=== PATIENT | female | born 1935 | race Caucasian/White ===

== ENCOUNTER → 2016-04-29 | Outpatient (CLI) | payer MEDICARE, OTHER | LOC: OD 10:20 | PROVIDERS: ATTEND Pain Medicine Interventional Pain Medicine | DX: M25.562 Pain in left knee (principal) ==

== ENCOUNTER 2016-07-14 12:32 | Inpatient (IN) | payer MEDICARE, OTHER ==
[2016-07-14] MEDS ORDERED: NORMAL SALINE 1000 ML 1,000 ML IV PRN (13:07)
--- NOTE | 2016-07-14 13:23 | PDOC H&P ---
History of Present Illness Admission Date/PCP: 07/14/16 12:32 DELFINO LYNN Patient complains of: Nausea vomiting History of Present Illness: KAT WHELAN is a 81 year old female This 81-year-old female with a history of the hypertension and a history of the chronic osteoarthritis and osteoporosis came to the my office with a complaining from nausea and vomiting since last 2 days and also complained for loose stool patient's denied any blood in the stool denied any black stool. Patient was complaining some lower abdominal discomfort. Patient also complains some more frequent urinations and patient also tried to drink more water since last couple of days. Patient also seen by Dr. Coreas last year and then a colonoscopy was done and according to the patient was all stable patients in my officeWas dehydrated and at this point decided to admit in the hospital for further IV fluid and further evaluations Patients denied any chest pain denied any shortness of the breath Past Medical History Cardiac Medical History: Reports: Hypertension - CONTROLLED Denies: Coronary Artery Disease, Myocardial Infarction Pulmonary Medical History: Reports: Pneumonia Denies: Asthma, Bronchitis, Chronic Obstructive Pulmonary Disease (COPD) Neurological Medical History: Denies: Seizures GI Medical History: Reports: Gastroesophageal Reflux Disease, Hiatal Hernia Denies: Hepatitis Musculoskeltal Medical History: Reports: Arthritis Hematology: Denies: Anemia, Sickle Cell Disease Past Surgical History Past Surgical History: Reports: Hysterectomy, Orthopedic Surgery Denies: Amputation, Mastectomy, Pacemaker Social History Information Source: Patient Smoking Status: Never Smoker Frequency of Alcohol Use: None Hx Recreational Drug Use: No Hx Prescription Drug Abuse: No Family History Family History: None, Reviewed & Not Pertinent Parental Family History Reviewed: Yes Children Family History Reviewed: Yes Sibling(s) Family History Reviewed.: Yes Medication/Allergy Home Medications: Calcium Carbonate/Vitamin D3 [Calcium + Vitamin D Tablet] 1 each PO DAILY Hydrochlorothiazide 25 mg PO DAILY 01/15/12 Omeprazole 20 mg PO DAILY 01/15/12 Tramadol HCl 50 mg PO BID PRN 01/15/12 Ranitidine HCl 150 mg PO BID 08/10/12 Diclofenac Sodium [Voltaren] 100 gm TP DAILY PRN 08/11/12 Fexofenadine HCl [Romelia] 180 mg PO DAILY 08/11/12 Fluticasone Propionate [Flonase Nasal [place] 50 Mcg/[place] 16 gm] 2 spray NASL Q12 PRN 08/11/12 Allergies/Adverse Reactions: Penicillins Allergy (Verified 12/07/13 12:37) Review of Systems Constitutional: PRESENT: anorexia, weakness. ABSENT: chills, fever(s), headache (s), weight gain, weight loss Eyes: ABSENT: visual disturbances Ears: ABSENT: hearing changes Cardiovascular: ABSENT: chest pain, dyspnea on exertion, edema, orthropnea, palpitations Respiratory: ABSENT: cough, hemoptysis Gastrointestinal: PRESENT: abdominal pain, diarrhea, nausea, vomiting. ABSENT: constipation, hematemesis, hematochezia Genitourinary: ABSENT: dysuria, hematuria Musculoskeletal: ABSENT: joint swelling Integumentary: ABSENT: rash, wounds Neurological: ABSENT: abnormal gait, abnormal speech, confusion, dizziness, focal weakness, syncope Psychiatric: ABSENT: anxiety, depression, homidical ideation, suicidal ideation Endocrine: ABSENT: cold intolerance, heat intolerance, menstrual abnormalities, polydipsia, polyuria Hematologic/Lymphatic: ABSENT: easy bleeding, easy bruising, lymphadenopathy Assessment & Plan - Diagnosis (1) Nausea & vomiting Qualifiers: Vomiting Intractability: unspecified Is this a current diagnosis for this admission?: YesPlan: Given patient Zofran 4 mg IV and IV fluid and a full liquid diet and get the CT abdomen and pelvis for further evaluations (2) Dehydration Plan: From the above conditions start the patient on IV fluid (3) Arthritis Plan: Patient's currently taking Mobic will put the patient on Protonix (4) Abdominal pain Qualifiers: Abdominal location: unspecified location Qualified Code(s): R10.9 - Unspecified abdominal pain Is this a current diagnosis for this admission?: YesPlan: We will check the blood work possible underlying urinary tract infections will check the urine culture and get the CT abdomen and pelvis - Time Time Spent: 30 to 50 Minutes Medications reviewed and adjusted accordingly: Yes Anticipated discharge: Home Within: Other - Inpatient Certification Medical Necessity: Need For IV Fluids, Need for IV Antibiotics 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
[2016-07-14] MEDS ORDERED: CIPROFLOXACIN 400 MG/D5W RTU 400 MG/200 ML RTUPB IV ONE (14:00)
[2016-07-14 14:14] LABS: HEMATOCRIT 34.1 % (36.0-47.0); HGB HCT DIFFERENCE -1.1; MEAN CORPUSCULAR HEMOGLOBIN 24.8 pg (27.0-33.4); MEAN CORPUSCULAR HGB CONC 32.2 g/dL (32.0-36.0); MEAN CORPUSCULAR VOLUME 77 fl (80-97); RED BLOOD COUNT 4.44 10^6/uL (3.72-5.28); RED CELL DISTRIBUTION WIDTH 16.7 % (11.5-14.0); WHITE BLOOD COUNT 28.4 10^3/uL (4.0-10.5)
[2016-07-14] MEDS: NORMAL SALINE 1000 ML 1,000 ML IV PRN (14:37)
[2016-07-14 14:39] LABS: ALANINE AMINOTRANSFERASE 27 U/L (9-52); ALBUMIN 3.7 g/dL (3.5-5.0); ALKALINE PHOSPHATASE 104 U/L (38-126); ANION GAP 14 (5-19); ASPARTATE AMINO TRANSFERASE 19 U/L (14-36); BILIRUBIN,DIRECT 0.4 mg/dL (0.0-0.4); BILIRUBIN,TOTAL 0.7 mg/dL (0.2-1.3); BLOOD UREA NITROGEN 20 mg/dL (7-20); CALCIUM 10.4 mg/dL (8.4-10.2); CARBON DIOXIDE 30 mmol/L (22-30); CHLORIDE 96 mmol/L (98-107); CREATININE RESULT 0.72 mg/dL (0.52-1.25); GLUCOSE 109 mg/dL (75-110); LIPASE 23.3 U/L (23-300); POTASSIUM 4.2 mmol/L (3.6-5.0); SODIUM 139.5 mmol/L (137-145); TOTAL PROTEIN 7.2 g/dL (6.3-8.2)
[2016-07-14 14:45] LABS: BASOPHILS % (MANUAL) 0 % (0-2); EOSINOPHILS % (MANUAL) 0 % (0-6); LYMPHOCYTES % (MANUAL) 9 % (13-45); TOTAL CELLS COUNTED 100
[2016-07-14 14:46] LABS: BAND NEUTROPHILS % (MANUAL) 13 % (3-5)
[2016-07-14 14:50] LABS: POLYCHROMASIA SLIGHT; TOXIC GRANULATION SLIGHT; TOXIC VACUOLATION PRESENT
[2016-07-14] MEDS: ONDANSETRON HCL INJ/PF 4 MG/2 ML SDV IV PRN (17:24)
[2016-07-14] MEDS ORDERED: PANTOPRAZOLE SODIUM 40 MG VIAL IV ONE (18:30)
[2016-07-14 19:27] LABS: AMORPHOUS SEDIMENT,URINE TRACE /HPF; APPEARANCE,URINE SLIGHTLY-CLOUDY; BILIRUBIN,URINE NEGATIVE (NEGATIVE); GLUCOSE, URINE NEGATIVE (NEGATIVE); KETONES,URINE NEGATIVE (NEGATIVE); LEUKOCYTE ESTERASE,URINE LARGE (NEGATIVE); NITRITE,URINE POSITIVE (NEGATIVE); PROTEIN,URINE NEGATIVE (NEGATIVE); URINE SPECIFIC GRAVITY 1.012; UROBILINOGEN,URINE NEGATIVE mg/dL (<2.0)
[2016-07-14] MEDS: METRONIDAZOLE 500 MG/NS RTU 100 ML IV SCH (21:59)
[2016-07-15] MEDS: NORMAL SALINE 1000 ML 1,000 ML IV PRN (04:14)
[2016-07-15] MEDS: CIPROFLOXACIN 400 MG/D5W RTU 400 MG/200 ML RTUPB IV SCH ×2 (05:04→17:59)
[2016-07-15] MEDS: METRONIDAZOLE 500 MG/NS RTU 100 ML IV SCH (05:04)
[2016-07-15] MEDS: PANTOPRAZOLE SODIUM 40 MG VIAL IV SCH ×2 (05:04→17:59)
[2016-07-15 07:19] LABS: ANION GAP 10 (5-19); BLOOD UREA NITROGEN 23 mg/dL (7-20); CALCIUM 8.6 mg/dL (8.4-10.2); CARBON DIOXIDE 26 mmol/L (22-30); CHLORIDE 101 mmol/L (98-107); GLUCOSE 121 mg/dL (75-110); POTASSIUM 3.8 mmol/L (3.6-5.0); SODIUM 137.3 mmol/L (137-145)
[2016-07-15 07:22] LABS: ABSOLUTE EOSINOPHILS # (AUTO) 0.1 10^3/uL (0.0-0.6); ABSOLUTE LYMPHOCYTES (AUTO) 1.9 10^3/uL (0.5-4.7); ABSOLUTE MONOCYTES (AUTO) 0.3 10^3/uL (0.1-1.4); ABSOLUTE NEUT (AUTO) 10.8 10^3/uL (1.7-8.2); BASOPHILS % (AUTO) 0.2 % (0-2); EOSINOPHILS % (AUTO) 0.7 % (0-6); HEMATOCRIT 27.8 % (36.0-47.0); HGB HCT DIFFERENCE -0.8; LYMPHOCYTES % (AUTO) 14.3 % (13-45); MEAN CORPUSCULAR HEMOGLOBIN 25.2 pg (27.0-33.4); MEAN CORPUSCULAR HGB CONC 32.5 g/dL (32.0-36.0); MEAN CORPUSCULAR VOLUME 78 fl (80-97); MONOCYTES % (AUTO) 2.6 % (3-13); RED BLOOD COUNT 3.57 10^6/uL (3.72-5.28); RED CELL DISTRIBUTION WIDTH 16.8 % (11.5-14.0); SEGMENTED NEUTROPHILS % (AUTO) 82.2 % (42-78); WHITE BLOOD COUNT 13.1 10^3/uL (4.0-10.5)
--- NOTE | 2016-07-15 08:07 | PDOC PROGRESS REPORT ---
Subjective Progress Note for:: 07/15/16 Subjective:: Patient's currently doing fair denied any nausea vomiting this complained of for heartburn Patient CT abdomen and pelvis did not show any acute finding and patient's chest x-ray was also stable pt white count was 28,000 yesterday and is coming down to 13 Physical Exam Vital Signs: Temp Pulse Resp BP Pulse Ox 97.6 F 83 16 100/53 L 97 07/14/16 23:31 07/14/16 23:31 07/14/16 23:31 07/14/16 23:31 07/14/16 23:31 Intake & Output 07/14/16 07/15/16 07/16/16 06:59 06:59 06:59 Intake Total 2530 Output Total 300 Balance 2230 Weight 45 kg General appearance: PRESENT: no acute distress, well-developed, well-nourished Head exam: PRESENT: atraumatic, normocephalic Eye exam: PRESENT: conjunctiva pink, EOMI, PERRLA. ABSENT: scleral icterus Ear exam: PRESENT: normal external ear exam Mouth exam: PRESENT: moist, tongue midline Neck exam: PRESENT: full ROM. ABSENT: carotid bruit, JVD, lymphadenopathy, thyromegaly Respiratory exam: PRESENT: clear to auscultation candelario Cardiovascular exam: PRESENT: RRR. ABSENT: diastolic murmur, rubs, systolic murmur Pulses: PRESENT: normal dorsalis pedis pul, +2 pedal pulses bilateral Vascular exam: PRESENT: normal capillary refill GI/Abdominal exam: PRESENT: normal bowel sounds, soft. ABSENT: distended, guarding, mass, organolmegaly, rebound, tenderness Rectal exam: PRESENT: deferred Neurological exam: PRESENT: alert, awake, oriented to person, oriented to place , oriented to time, oriented to situation, CN II-XII grossly intact. ABSENT: motor sensory deficit Psychiatric exam: PRESENT: appropriate affect, normal mood. ABSENT: homicidal ideation, suicidal ideation Skin exam: PRESENT: dry, intact, warm. ABSENT: cyanosis, rash Results Laboratory Results: 07/15/16 06:54 07/15/16 06:54 07/14/16 07/14/16 07/14/16 13:47 13:47 18:10 WBC 28.4 H RBC 4.44 Hgb 11.0 L Hct 34.1 L MCV 77 L MCH 24.8 L MCHC 32.2 RDW 16.7 H Plt Count 374 Seg Neutrophils % Not Reportable Lymphocytes % Not Reportable Monocytes % Not Reportable Eosinophils % Not Reportable Basophils % Not Reportable Absolute Neutrophils Not Reportable Absolute Lymphocytes Not Reportable Absolute Monocytes Not Reportable Absolute Eosinophils Not Reportable Absolute Basophils Not Reportable Sodium 139.5 Potassium 4.2 Chloride 96 L Carbon Dioxide 30 Anion Gap 14 BUN 20 Creatinine 0.72 Est GFR ( Amer) > 60 Est GFR (Non-Af Amer) > 60 Glucose 109 Calcium 10.4 H Total Bilirubin 0.7 AST 19 ALT 27 Alkaline Phosphatase 104 Total Protein 7.2 Albumin 3.7 Lipase 23.3 Urine Color Urine Appearance Urine pH Ur Specific [place] Urine Protein Urine Glucose (UA) Urine Ketones Urine Blood Urine Nitrite Ur Leukocyte Esterase Urine WBC (Auto) Urine RBC (Auto) Stool Occult Blood NEGATIVE 07/14/16 07/15/16 07/15/16 18:10 06:54 06:54 WBC 13.1 H RBC 3.57 L Hgb 9.0 L Hct 27.8 L MCV 78 L MCH 25.2 L MCHC 32.5 RDW 16.8 H Plt Count 321 Seg Neutrophils % 82.2 H Lymphocytes % 14.3 Monocytes % 2.6 L Eosinophils % 0.7 Basophils % 0.2 Absolute Neutrophils 10.8 H Absolute Lymphocytes 1.9 Absolute Monocytes 0.3 Absolute Eosinophils 0.1 Absolute Basophils 0.0 Sodium 137.3 Potassium 3.8 Chloride 101 Carbon Dioxide 26 Anion Gap 10 BUN 23 H Creatinine 0.70 Est GFR ( Amer) > 60 Est GFR (Non-Af Amer) > 60 Glucose 121 H Calcium 8.6 Total Bilirubin AST ALT Alkaline Phosphatase Total Protein Albumin Lipase Urine Color YELLOW Urine Appearance SLIGHTLY-CLOUDY Urine pH 7.0 Ur Specific [place] 1.012 Urine Protein NEGATIVE Urine Glucose (UA) NEGATIVE Urine Ketones NEGATIVE Urine Blood NEGATIVE Urine Nitrite POSITIVE H Ur Leukocyte Esterase LARGE H Urine WBC (Auto) >182 Urine RBC (Auto) 20 Stool Occult Blood Impressions: Abdomen/Pelvis CT 07/14/16 00:00 IMPRESSION: Large hiatal hernia. No acute findings in the abdomen or pelvis. Chest X-Ray 07/14/16 00:00 IMPRESSION: Mild subsegmental atelectasis in both lung bases. No dense consolidation or significant effusion. Assessment & Plan - Diagnosis (1) Nausea & vomiting Qualifiers: Vomiting Intractability: unspecified Is this a current diagnosis for this admission?: YesPlan: Is getting better the CT abdomen and pelvis so the large hiatal hernia will consult the GI for further evaluations and continues the Protonix (2) Dehydration Plan: From an above patient's currently better continues IV fluid (3) Arthritis Plan: Patient's currently taking Mobic will put the patient on Protonix (4) Abdominal pain Qualifiers: Abdominal location: unspecified location Qualified Code(s): R10.9 - Unspecified abdominal pain Is this a current diagnosis for this admission?: YesPlan: Most likely from the gastritis stopped and possible urinary tract infections (5) Leukocytosis Qualifiers: Leukocytosis type: unspecified Qualified Code(s): D72.829 - Elevated white blood cell count, unspecified Is this a current diagnosis for this admission?: YesPlan: Most likely underlying urinary tract infections will continues IV Cipro and continues the current other medications - Time Time Spent with patient: 15-24 minutes Medications reviewed and adjusted accordingly: Yes Anticipated discharge: Home Within: Other - Inpatient Certification Medical Necessity: Need For IV Fluids, Need for IV Antibiotics Post Hospital Care: D/C Electrical Tests Supervisor Documentation - Plan Summary Plan Summary: Continues IV Cipro and IV fluid and wait for the GI consult
[2016-07-15] MEDS: ONDANSETRON HCL INJ/PF 4 MG/2 ML SDV IV PRN ×2 (08:27→12:32)
[2016-07-15] MEDS: ENOXAPARIN SODIUM INJ 30 MG/0.3 ML DISP.SYRIN SUBCUT SCH (08:27)
[2016-07-15] MEDS ORDERED: PANTOPRAZOLE SODIUM 40 MG VIAL IV SCH (10:00)
[2016-07-15] MEDS: ACETAMINOPHEN 325 MG TABLET PO PRN ×2 (11:43→20:41)
[2016-07-15 14:35] LABS: PATH REVIEW PATHOLOGIST REVIEWED
[2016-07-15] MEDS ORDERED: LORATADINE 10 MG TABLET PO ONE (21:00)
[2016-07-16] MEDS: ACETAMINOPHEN 325 MG TABLET PO PRN (04:05)
[2016-07-16] MEDS: PANTOPRAZOLE SODIUM 40 MG VIAL IV SCH (05:37)
[2016-07-16] MEDS: CIPROFLOXACIN 400 MG/D5W RTU 400 MG/200 ML RTUPB IV SCH (05:38)
[2016-07-16 06:09] LABS: ABSOLUTE EOSINOPHILS # (AUTO) 0.1 10^3/uL (0.0-0.6); ABSOLUTE LYMPHOCYTES (AUTO) 1.6 10^3/uL (0.5-4.7); ABSOLUTE MONOCYTES (AUTO) 0.6 10^3/uL (0.1-1.4); ABSOLUTE NEUT (AUTO) 7.2 10^3/uL (1.7-8.2); BASOPHILS % (AUTO) 0.5 % (0-2); EOSINOPHILS % (AUTO) 1.3 % (0-6); HEMATOCRIT 27.6 % (36.0-47.0); HEMOGLOBIN 9.2 g/dL (12.0-15.5); LYMPHOCYTES % (AUTO) 16.8 % (13-45); MEAN CORPUSCULAR HEMOGLOBIN 25.5 pg (27.0-33.4); MEAN CORPUSCULAR HGB CONC 33.2 g/dL (32.0-36.0); MEAN CORPUSCULAR VOLUME 77 fl (80-97); MONOCYTES % (AUTO) 6.2 % (3-13); RED BLOOD COUNT 3.59 10^6/uL (3.72-5.28); RED CELL DISTRIBUTION WIDTH 16.8 % (11.5-14.0); SEGMENTED NEUTROPHILS % (AUTO) 75.2 % (42-78); WHITE BLOOD COUNT 9.7 10^3/uL (4.0-10.5)
[2016-07-16 06:20] LABS: ANION GAP 8 (5-19); BLOOD UREA NITROGEN 14 mg/dL (7-20); CALCIUM 8.6 mg/dL (8.4-10.2); CARBON DIOXIDE 25 mmol/L (22-30); CHLORIDE 108 mmol/L (98-107); CREATININE RESULT 0.64 mg/dL (0.52-1.25); GLUCOSE 95 mg/dL (75-110); POTASSIUM 3.7 mmol/L (3.6-5.0)
[2016-07-16] MEDS ORDERED: DIPHENHYDRAMINE HCL 50 MG/ML VIAL ONE (08:13)
[2016-07-16] MEDS ORDERED: MIDAZOLAM 2 MG/2 ML INJ ONE (08:13)
[2016-07-16] MEDS ORDERED: ONDANSETRON HCL INJ/PF 4 MG/2 ML SDV ONE (08:13)
[2016-07-16] MEDS ORDERED: NALOXONE HCL INJ/PF 0.4 MG/1 ML SDV ONE (08:13)
[2016-07-16] MEDS ORDERED: EPINEPHRINE INJ 1 MG/10 ML DISP.SYRIN ONE (08:14)
[2016-07-16] MEDS ORDERED: FLUMAZENIL INJ 0.5 MG/5 ML VIAL IV ONE (08:14)
[2016-07-16] MEDS ORDERED: FENTANYL CITRATE INJ/PF 100 MCG/2 ML AMPUL ONE (08:14)
[2016-07-16] MEDS ORDERED: GLUCAGON,HUMAN RECOMB 1 MG INJ ONE (08:14)
--- NOTE | 2016-07-16 08:17 | PDOC PROGRESS REPORT ---
Subjective Progress Note for:: 07/16/16 Subjective:: Patient is currently doing fair patient is complaining of leg pain other than that no nausea no vomiting and no fever Patient want start the tramadol and other home medications Patient's also scheduled for endoscopy today per Dr. Freeman Physical Exam Vital Signs: Temp Pulse Resp BP Pulse Ox 98.5 F 84 18 134/71 H 98 07/16/16 07:58 07/16/16 07:58 07/16/16 07:58 07/16/16 07:58 07/16/16 07:58 Intake & Output 07/15/16 07/16/16 07/17/16 06:59 06:59 06:59 Intake Total 2530 4103 Output Total 300 2125 Balance 2230 1978 Weight 45 kg 39.4 kg General appearance: PRESENT: no acute distress, well-developed, well-nourished Head exam: PRESENT: atraumatic, normocephalic Eye exam: PRESENT: conjunctiva pink, EOMI, PERRLA. ABSENT: scleral icterus Ear exam: PRESENT: normal external ear exam Mouth exam: PRESENT: moist, tongue midline Neck exam: PRESENT: full ROM. ABSENT: carotid bruit, JVD, lymphadenopathy, thyromegaly Respiratory exam: PRESENT: clear to auscultation candelario Cardiovascular exam: PRESENT: RRR. ABSENT: diastolic murmur, rubs, systolic murmur Pulses: PRESENT: normal dorsalis pedis pul, +2 pedal pulses bilateral Vascular exam: PRESENT: normal capillary refill GI/Abdominal exam: PRESENT: normal bowel sounds, soft. ABSENT: distended, guarding, mass, organolmegaly, rebound, tenderness Rectal exam: PRESENT: deferred Neurological exam: PRESENT: alert, awake, oriented to person, oriented to place , oriented to time, oriented to situation, CN II-XII grossly intact. ABSENT: motor sensory deficit Psychiatric exam: PRESENT: appropriate affect, normal mood. ABSENT: homicidal ideation, suicidal ideation Skin exam: PRESENT: dry, intact, warm. ABSENT: cyanosis, rash Results Laboratory Results: 07/16/16 05:29 07/16/16 05:29 07/14/16 07/16/16 07/16/16 13:47 05:29 05:29 WBC 28.4 H 9.7 RBC 4.44 3.59 L Hgb 11.0 L 9.2 L Hct 34.1 L 27.6 L MCV 77 L 77 L MCH 24.8 L 25.5 L MCHC 32.2 33.2 RDW 16.7 H 16.8 H Plt Count 374 291 Seg Neutrophils % 75.2 Lymphocytes % 16.8 Monocytes % 6.2 Eosinophils % 1.3 Basophils % 0.5 Absolute Neutrophils 7.2 Absolute Lymphocytes 1.6 Absolute Monocytes 0.6 Absolute Eosinophils 0.1 Absolute Basophils 0.0 Sodium 141.0 Potassium 3.7 Chloride 108 H Carbon Dioxide 25 Anion Gap 8 BUN 14 Creatinine 0.64 Est GFR ( Amer) > 60 Est GFR (Non-Af Amer) > 60 Glucose 95 Calcium 8.6 Impressions: Abdomen/Pelvis CT 07/14/16 00:00 IMPRESSION: Large hiatal hernia. No acute findings in the abdomen or pelvis. Chest X-Ray 07/14/16 00:00 IMPRESSION: Mild subsegmental atelectasis in both lung bases. No dense consolidation or significant effusion. Assessment & Plan - Diagnosis (1) Nausea & vomiting Qualifiers: Vomiting Intractability: unspecified Is this a current diagnosis for this admission?: YesPlan: ALl resolving scheduled for the endoscopy today (2) Dehydration Plan: Start the IV fluid now after the endoscopy (3) Arthritis Plan: Start the patient's pain medications (4) Abdominal pain Qualifiers: Abdominal location: unspecified location Qualified Code(s): R10.9 - Unspecified abdominal pain Is this a current diagnosis for this admission?: YesPlan: resolved (5) Leukocytosis Qualifiers: Leukocytosis type: unspecified Qualified Code(s): D72.829 - Elevated white blood cell count, unspecified Is this a current diagnosis for this admission?: YesPlan: Resolved - Time Time Spent with patient: 15-24 minutes Medications reviewed and adjusted accordingly: Yes Anticipated discharge: Home Within: within 24 hours - Inpatient Certification Medical Necessity: Need Close Monitoring Due to Risk of Patient Decompensation 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
[2016-07-16] MEDS: ENOXAPARIN SODIUM INJ 30 MG/0.3 ML DISP.SYRIN SUBCUT SCH (08:42)
--- NOTE | 2016-07-16 08:49 | Operative Report ---
Operative Report DATE OF SURGERY: 07/16/16 Operative Report: The risks benefits and alternatives of the procedure explained to the patient in detail and informed consent is obtained that GIF Olympus video scope was inserted into the patient's mouth and hypopharynx the esophagus is identified intubated and insufflated the scope was then advanced through the esophagus stomach and duodenum retroflexion maneuver is done the esophagus stomach and first and second portions of the duodenum examined PREOPERATIVE DIAGNOSIS: Nausea vomiting. Dysphagia POSTOPERATIVE DIAGNOSIS: Large paraesophageal hernia. Gastritis, status post biopsy obtained rule out Helicobacter pylori OPERATION: EGD with biopsy SURGEON: MICHAEL INIGUEZ ANESTHESIA: Moderate Sedation - 2 mg of Versed, 12.5 mg of fentanyl. Conscious sedation monitoring time 30 minutes. TISSUE REMOVED OR ALTERED: Gastric specimen obtained rule out Helicobacter pylori COMPLICATIONS: None. ESTIMATED BLOOD LOSS: none. INTRAOPERATIVE FINDINGS: Large paraesophageal hernia, gastritis PROCEDURE: Patient tolerated procedure well. No immediate postprocedure complications are noted. Patient sent back to her room in good condition. We'll await on biopsies. Recommend transfer divided for thoracic surgery consideration of paraesophageal hernia repair. Aspiration precautions with eating.
[2016-07-16] MEDS ORDERED: (PENDING PHARMACY ID) (Ranitidine Hcl [Zantac 150 Mg Tablet] 150 MG) PO SCH (10:00)
[2016-07-16] MEDS: CIPROFLOXACIN HCL 500 MG TABLET PO SCH ×2 (10:00→22:09)
[2016-07-16] MEDS ORDERED: CALCIUM CARBONATE 500 MG TABLET PO SCH (10:00)
[2016-07-16] MEDS ORDERED: FLUTICASONE NASAL SPRAY 50 MCG/SPRY 120 SPRAY/16 GM NASL SCH (10:00)
[2016-07-16] MEDS ORDERED: CHOLECALCIFEROL (D3) 1,000 UNIT TABLET PO SCH (10:00)
[2016-07-16] MEDS: FAMOTIDINE 20 MG TABLET PO SCH ×2 (10:00→22:09)
[2016-07-16] MEDS ORDERED: LORATADINE 10 MG TABLET PO SCH (10:00)
[2016-07-16] MEDS: TRAMADOL HCL 50 MG TABLET PO PRN ×2 (10:11→22:08)
[2016-07-16] MEDS: LANSOPRAZOLE 30 MG TAB.RAP.DR PO SCH (18:26)
[2016-07-17] MEDS: LANSOPRAZOLE 30 MG TAB.RAP.DR PO SCH (05:22)
[2016-07-17 06:34] LABS: ANION GAP 10 (5-19); BLOOD UREA NITROGEN 12 mg/dL (7-20); CALCIUM 8.6 mg/dL (8.4-10.2); CARBON DIOXIDE 25 mmol/L (22-30); CHLORIDE 105 mmol/L (98-107); CREATININE RESULT 0.74 mg/dL (0.52-1.25); GLUCOSE 90 mg/dL (75-110); POTASSIUM 4.8 mmol/L (3.6-5.0); SODIUM 140.2 mmol/L (137-145)
--- NOTE | 2016-07-17 08:19 | PDOC DISCHARGE SUMMARY ---
General - Admit/Disc Date/PCP Admission Date/Primary Care Provider: 07/14/16 12:32 DELFINO LYNN Discharge Date: 07/17/16 - Discharge Diagnosis (1) Nausea & vomiting Is this a current diagnosis for this admission?: YesSummary: resolved (2) Dehydration Summary: resolved (3) Arthritis Summary: Stable (4) Abdominal pain Is this a current diagnosis for this admission?: YesSummary: resoved (5) Leukocytosis Is this a current diagnosis for this admission?: YesSummary: resoved (6) Paraesophageal hernia Is this a current diagnosis for this admission?: YesSummary: Aspirations precautions and discuss with the Dr. Freeman and suggest a follow-up outpatient CT surgeon for further evaluations. Patient's currently doing well denied any nausea no vomiting patient's by mouth intake is good and the patient' s ambulatory without any problems and the patient's desire to go home First and do not want to go to the CT surgeons is and patient We will discharge the patient's home today and follow as outpatient center 1 week and will make arrangement as outpatient CT surgeons discussed with the patient and the family about all the plans - Additional Information Resuscitation Status: Full Code Discharge Diet: Regular Discharge Activity: Activity As Tolerated Home Medications: Calcium Carbonate [Calcium] 500 mg PO DAILY 07/14/16 Cholecalciferol (Vitamin D3) [Vitamin D3 1000 Unit Tablet] 1,000 units PO DAILY 07/14/16 Denosumab [Prolia 60 mg/ml Syr 1 ml] 60 mg SQ ASDIR 07/14/16 Fluticasone Propionate [Flonase Nasal [place] 50 Mcg/[place] 16 gm] 1 spray NASL DAILY 07/14/16 Meloxicam [Mobic 7.5 mg Tablet] 7.5 mg PO DAILY 07/14/16 Ranitidine HCl [Zantac 150 mg Tablet] 150 mg PO Q12 07/14/16 Tramadol HCl [Ultram 50 mg Tablet] 50 mg PO Q12HP PRN 07/14/16 Ciprofloxacin HCl [Cipro 500 mg Tablet] 500 mg PO Q12 #10 tablet 07/17/16 Omeprazole 20 mg PO BID #60 07/17/16 Tramadol HCl [Ultram 50 mg Tablet] 50 mg PO Q12HP PRN #60 tablet 07/17/16 History of Present Illness History of Present Illness: KAT WHELAN is a 81 year old female This 81-year-old female with a history of the hypertension and a history of the chronic osteoarthritis and osteoporosis came to the my office with a complaining from nausea and vomiting since last 2 days and also complained for loose stool patient's denied any blood in the stool denied any black stool. Patient was complaining some lower abdominal discomfort. Patient also complains some more frequent urinations and patient also tried to drink more water since last couple of days. Patient also seen by Dr. Coreas last year and then a colonoscopy was done and according to the patient was all stable patients in my officeWas dehydrated and at this point decided to admit in the hospital for further IV fluid and further evaluations Patients denied any chest pain denied any shortness of the breath Hospital Course Hospital Course: Is a 81-year-old female present in the office with the nausea and vomiting and the patient have a some low-grade fever patient was admitting in the hospital for further evaluation and treatment. Patient's maybe of some urinary tract infections with the leukocytosis and patient was put on Cipro and is possibly well. Patient also underwent for the endoscopy and the found the paraesophageal hernia and Dr. Freeman suggest patient to see the CT surgeon as outpatient is 1 patient is doing okay and patient's most to go home will make arrangement as outpatient patient's for further evaluations. Patient otherwise denied any chest pain denied any shortness of the breath. Discussed with the patient about the or the test results and the family and suggest aspirations precautions and continues to PPI and follow in one week in office and will make arrangement to see the CT surgeon. Physical Exam Vital Signs: Temp Pulse Resp BP Pulse Ox 97.5 F 91 16 121/62 96 07/16/16 23:36 07/16/16 23:36 07/16/16 23:36 07/16/16 23:36 07/16/16 23:36 Intake & Output 07/16/16 07/17/16 07/18/16 06:59 06:59 06:59 Intake Total 4103 1470 Output Total 2127 1600 Balance 1977 - Weight 39.4 kg 42.6 kg General appearance: PRESENT: no acute distress, well-developed, well-nourished Head exam: PRESENT: atraumatic, normocephalic Eye exam: PRESENT: conjunctiva pink, EOMI, PERRLA. ABSENT: scleral icterus Ear exam: PRESENT: normal external ear exam Mouth exam: PRESENT: moist, tongue midline Neck exam: PRESENT: full ROM. ABSENT: carotid bruit, JVD, lymphadenopathy, thyromegaly Respiratory exam: PRESENT: clear to auscultation candelario Cardiovascular exam: PRESENT: RRR. ABSENT: diastolic murmur, rubs, systolic murmur Pulses: PRESENT: normal dorsalis pedis pul, +2 pedal pulses bilateral Vascular exam: PRESENT: normal capillary refill GI/Abdominal exam: PRESENT: normal bowel sounds, soft. ABSENT: distended, guarding, mass, organolmegaly, rebound, tenderness Rectal exam: PRESENT: deferred Neurological exam: PRESENT: alert, awake, oriented to person, oriented to place , oriented to time, oriented to situation, CN II-XII grossly intact. ABSENT: motor sensory deficit Psychiatric exam: PRESENT: appropriate affect, normal mood. ABSENT: homicidal ideation, suicidal ideation Skin exam: PRESENT: dry, intact, warm. ABSENT: cyanosis, rash Results Laboratory Results: 07/16/16 05:29 07/17/16 05:31 07/17/16 05:31 Sodium 140.2 Potassium 4.8 Chloride 105 Carbon Dioxide 25 Anion Gap 10 BUN 12 Creatinine 0.74 Est GFR ( Amer) > 60 Est GFR (Non-Af Amer) > 60 Glucose 90 Calcium 8.6 07/14/16 18:10 Clean Catch Midstream Urine Culture - Final Mixed Urogenital [place] Impressions: Abdomen/Pelvis CT 07/14/16 00:00 IMPRESSION: Large hiatal hernia. No acute findings in the abdomen or pelvis. Chest X-Ray 07/14/16 00:00 IMPRESSION: Mild subsegmental atelectasis in both lung bases. No dense consolidation or significant effusion.
[2016-07-17 09:12] VITALS: BP 135/65
== END 2016-07-17 10:01 | disposition home or self-care (01) | DRG 392 ==
LOC: 4N 12:32
PROVIDERS: ADMIT Family Medicine; ATTEND Family Medicine
PROC: 0DB68ZX Excision of Stomach, Via Natural or Artificial Opening Endoscopic, Diagnostic (ICD-10-PCS; principal; 2016-07-16 11:00)
DX: K44.9 Diaphragmatic hernia without obstruction or gangrene (principal); K29.70 Gastritis, unspecified, without bleeding; E86.0 Dehydration; K21.9 Gastro-esophageal reflux disease without esophagitis; I10 Essential (primary) hypertension; R11.2 Nausea with vomiting, unspecified; M19.90 Unspecified osteoarthritis, unspecified site; M81.0 Age-related osteoporosis without current pathological fracture; Z88.0 Allergy status to penicillin; Z79.51 Long term (current) use of inhaled steroids; Z79.899 Other long term (current) drug therapy
CPT/HCPCS: 36415; 43239; 71020; 74176; 80048; 80053; 81001; 82272; 83690; 85025; 87040; 87086; 87493; 88305; 88342; J0171; J0744; J1200; J1610; J1650; J2250; J2310; J2405; J3010; J3490; J7030; S0164

== ENCOUNTER 2017-04-17 08:51 | Outpatient (CLI) | payer MEDICARE, OTHER ==
[~2017-04-17 08:51] MED LIST: FERUMOXYTOL (NON-ESRD) 510 MG/NS 100 ML IV PRN; NORMAL SALINE 250 ML IV PRN
[2017-04-17 09:10] VITALS: BP 122/57
== END 2017-04-17 10:10 | disposition home or self-care (01) ==
LOC: II 08:51 → 5TH 08:57 → II 10:10
PROVIDERS: ATTEND Internal Medicine
PROC: 3E033GC Introduction of Other Therapeutic Substance into Peripheral Vein, Percutaneous Approach (ICD-10-PCS; principal; 2017-04-17)
DX: D50.8 Other iron deficiency anemias (principal); N18.2 Chronic kidney disease, stage 2 (mild)
CPT/HCPCS: 96365; Q0138

== ENCOUNTER 2017-04-24 09:01 | Outpatient (CLI) | payer MEDICARE, OTHER ==
[~2017-04-24 09:01] MED LIST changes: -FERUMOXYTOL (NON-ESRD) 510 MG/NS 100 ML IV PRN; +FERUMOXYTOL 510 MG in NORMAL SALINE 100 ML IV PRN
[2017-04-24 09:39] VITALS: BP 99/42
== END 2017-04-24 10:10 | disposition home or self-care (01) ==
LOC: II 09:01 → 5TH 09:04 → II 10:10
PROVIDERS: ATTEND Internal Medicine
PROC: 3E033GC Introduction of Other Therapeutic Substance into Peripheral Vein, Percutaneous Approach (ICD-10-PCS; principal; 2017-04-24)
DX: D50.8 Other iron deficiency anemias (principal); N18.2 Chronic kidney disease, stage 2 (mild)
CPT/HCPCS: 96365; Q0138

== ENCOUNTER → 2017-05-29 | Outpatient (CLI) | payer MEDICARE, OTHER ==
--- NOTE | 2017-05-29 12:51 | RADIOLOGY REPORT (SQ) ---
EXAM DESCRIPTION: FEMUR LEFT COMPLETED DATE/TIME: 05/29/2017 9:54 am REASON FOR STUDY: PAIN IN LEFT LEG M79.605 PAIN IN LEFT LEG COMPARISON: March 2016 NUMBER OF VIEWS: Two views. TECHNIQUE: Two radiographic images acquired of the left femur to include hip and knee in at least on e projection. LIMITATIONS: None. FINDINGS: MINERALIZATION: Normal. BONES: No acute fracture. No worrisome bone lesions. SOFT TISSUES: No obvious swelling or foreign body. OTHER: Extensive orthopedic hardware is again identified throughout the left femur which appears stab le IMPRESSION: Stable old posttraumatic and postsurgical changes as noted above. No acute changes are identified. TECHNICAL DOCUMENTATION: JOB ID: [id number] [employer]- All Rights Reserved Reading location - IP/workstation name: [email or web address]
== END ==
LOC: OD 09:34
PROVIDERS: ATTEND Physician Assistant
DX: M79.605 Pain in left leg (principal)

== ENCOUNTER → 2017-07-07 | Outpatient (CLI) | payer MEDICARE, OTHER ==
--- NOTE | 2017-07-07 14:08 | RADIOLOGY REPORT (SQ) ---
EXAM DESCRIPTION: FEMUR LEFT; HIP LEFT AP/LATERAL COMPLETED DATE/TIME: 07/07/2017 1:55 pm REASON FOR STUDY: OTHER SPECIFIED DISORDERS OF BONE, THIGH; PAIN IN LEFT HIP COMPARISON: 2015 and 05/29/2017. FINDINGS: Left hip: Two views to include AP pelvis and frog lateral left hip. Osteopenic. Extensi ve hardware is present, bilateral intact hip replacements with additional extensive changes of prior open reduction internal fixation of left acetabular fracture. Lateral plate and screw fixation along the proximal left femur, as before ; the space beneath the wilfrid te and the proximal femur looks increased compared to May. Some of this could be projectional, art ifact. Chronic lucency also noted along the medial cortex of the femur along the proximal cerclage w lawson. Left femur: Additional images are obtained to include the entirety of the femur. Two views, 4 image s. Distal plate and screw fixation intact. Osteopenic. No knee joint effusion. IMPRESSION: 1. Extensive hardware related to the left femur and hip. Plate and screw fixation along the lateral proximal femur may be slightly lifted off the underlying bone compared to May study. Other chronic appearing changes as above. TECHNICAL DOCUMENTATION: JOB ID: [id number] Reading location - IP/workstation name: [email or web address]
== END ==
LOC: OD 12:17
PROVIDERS: ATTEND Physician Assistant
DX: M25.552 Pain in left hip (principal); M89.8X5 Other specified disorders of bone, thigh

== ENCOUNTER → 2017-07-31 | Outpatient (CLI) | payer MEDICARE, OTHER ==
[2017-07-31 11:15] LABS: ABSOLUTE BASOPHILS # (AUTO) 0.1 10^3/uL (0.0-0.2); ABSOLUTE EOSINOPHILS # (AUTO) 0.2 10^3/uL (0.0-0.6); ABSOLUTE LYMPHOCYTES (AUTO) 1.6 10^3/uL (0.5-4.7); ABSOLUTE MONOCYTES (AUTO) 0.6 10^3/uL (0.1-1.4); ABSOLUTE NEUT (AUTO) 6.3 10^3/uL (1.7-8.2); BASOPHILS % (AUTO) 0.9 % (0-2); EOSINOPHILS % (AUTO) 2.1 % (0-6); HEMATOCRIT 30.6 % (36.0-47.0); HEMOGLOBIN 10.1 g/dL (12.0-15.5); LYMPHOCYTES % (AUTO) 18.4 % (13-45); MEAN CORPUSCULAR HEMOGLOBIN 27.4 pg (27.0-33.4); MEAN CORPUSCULAR VOLUME 83 fl (80-97); MONOCYTES % (AUTO) 6.6 % (3-13); PLATELET COUNT 417 10^3/uL (150-450); RED BLOOD COUNT 3.69 10^6/uL (3.72-5.28); RED CELL DISTRIBUTION WIDTH 14.5 % (11.5-14.0); TOTAL CELLS COUNTED % (AUTO) 100 %; WHITE BLOOD COUNT 8.8 10^3/uL (4.0-10.5)
--- NOTE | 2017-07-31 11:31 | RADIOLOGY REPORT (SQ) ---
EXAM DESCRIPTION: VENOUS UNILATERAL LOWER COMPLETED DATE/TIME: 07/31/2017 11:22 am REASON FOR STUDY: EDEMA R60.0 LOCALIZED EDEMA COMPARISON: Left femur films 07/07/2017 Left hip films 07/07/2017 TECHNIQUE: Dynamic and static simental scale and color images acquired of the left leg venous system. Se lected spectral images acquired with additional compression and augmentation maneuvers. The contralat eral common femoral vein and saphenofemoral junction were also imaged. Images stored on PACS. LIMITATIONS: None. FINDINGS: LEFT COMMON FEMORAL: Normal phasicity, compression and augmentation. No visualized echogenic material on g ray scale. No defects on color images. FEMORAL: Normal compression and augmentation. No visualized echogenic material on simental scale. No defe cts on color images. POPLITEAL: Normal compression, augmentation. No visualized echogenic material on simental scale. No defec ts on color images. CALF VESSELS: Normal compression, augmentation. No visualized echogenic material on simental scale. No de fects on color images. GSV and SSV: Normal compression, augmentation. No visualized echogenic material on simental scale. No def ects on color images. ANY DEEP VENOUS INSUFFICIENCY: No reflux on Valsalva. ANY EVIDENCE OF POPLITEAL CYST: No. OTHER: No other significant finding. RIGHT COMMON FEMORAL VEIN AND SAPHENOFEMORAL JUNCTION: Normal phasicity, compression and augmentation. No visualized echogenic material on simental scale. No de fects on color images. IMPRESSION: NO EVIDENCE OF DVT OR SVT IN THE LEFT LEG. TECHNICAL DOCUMENTATION: JOB ID: [id number] [employer]- All Rights Reserved Reading location - IP/workstation name: [facility]
[2017-07-31 11:39] LABS: ANION GAP 11 (5-19); BLOOD UREA NITROGEN 17 mg/dL (7-20); CALCIUM 9.9 mg/dL (8.4-10.2); CARBON DIOXIDE 32 mmol/L (22-30); CHLORIDE 95 mmol/L (98-107); GLUCOSE 90 mg/dL (75-110); POTASSIUM 3.8 mmol/L (3.6-5.0); SODIUM 138.1 mmol/L (137-145)
== END ==
LOC: SP 10:05
PROVIDERS: ATTEND Family Medicine
DX: R60.0 Localized edema (principal); I10 Essential (primary) hypertension
CPT/HCPCS: 36415; 80048; 85025; 93971

== ENCOUNTER 2017-09-17 11:02 | Emergency (ER) | payer MEDICARE, OTHER ==
[2017-09-17 13:27] LABS: APPEARANCE,URINE CLEAR; BILIRUBIN,URINE NEGATIVE (NEGATIVE); COLOR,URINE YELLOW; GLUCOSE, URINE NEGATIVE (NEGATIVE); KETONES,URINE NEGATIVE (NEGATIVE); LEUKOCYTE ESTERASE,URINE NEGATIVE (NEGATIVE); NITRITE,URINE NEGATIVE (NEGATIVE); PROTEIN,URINE NEGATIVE (NEGATIVE); URINE SPECIFIC GRAVITY 1.009; UROBILINOGEN,URINE NEGATIVE mg/dL (<2.0)
--- NOTE | 2017-09-17 13:27 | ER Document Report ---
ED Medical Screen (RME) - General Chief Complaint: Fall Injury Stated Complaint: FALL/BODY PAIN Time Seen by Provider: 09/17/17 13:19 Mode of Arrival: Stretcher Information source: Patient, Relative - daughters Notes: pt presents post fall today and 2 weeks ago. Right leg pain, upper and lower. Daughters report she did not seek medical attention two weeks ago when she fell. Patient was recently treated for sepsis, just off heparin a few weeks ago. has multiple hematomas, some skin tears. pt answers questions, daughters supplement answers. pt yells when right leg is palpated, RLL swollen, + erythema. TRAVEL OUTSIDE OF THE [place] IN LAST 30 DAYS: No - Related Data Allergies/Adverse Reactions: Penicillins Allergy (Verified 12/07/13 12:37) Sulfa (Sulfonamide Antibiotics) Allergy (Verified 09/17/17 12:14) Past Medical History - Past Medical History Cardiac Medical History: Reports: Hx Hypertension - CONTROLLED Denies: Hx Coronary Artery Disease, Hx Heart Attack Pulmonary Medical History: Reports: Hx Pneumonia Denies: Hx Asthma, Hx Bronchitis, Hx COPD Neurological Medical History: Denies: Hx Cerebrovascular Accident, Hx Seizures Renal/ Medical History: Denies: Hx Peritoneal Dialysis GI Medical History: Reports: Hx Gastroesophageal Reflux Disease, Hx Hiatal Hernia. Denies: Hx Hepatitis, Hx Ulcer Musculoskeltal Medical History: Reports Hx Arthritis Infectious Medical History: Denies: Hx Hepatitis Past Surgical History: Reports: Hx Hysterectomy, Hx Orthopedic Surgery. Denies : Hx Mastectomy, Hx Open Heart Surgery, Hx Pacemaker - Immunizations Hx Diphtheria, Pertussis, Tetanus Vaccination: Yes Physical Exam - Vital signs Vitals: Temp Pulse Resp BP Pulse Ox 98.3 F 100 16 145/66 H 98 09/17/17 11:32 09/17/17 11:32 09/17/17 11:32 09/17/17 11:32 09/17/17 11:32 Course - Vital Signs Vital signs: Temp Pulse Resp BP Pulse Ox 98.3 F 100 16 145/66 H 98 09/17/17 11:32 09/17/17 11:32 09/17/17 11:32 09/17/17 11:32 09/17/17 11:32 Doctor's Discharge - Discharge Referrals: WILLIAM RUSSELL MD [Primary Care Provider] - Follow up as needed
[2017-09-17 13:41] LABS: ABSOLUTE EOSINOPHILS # (AUTO) 0.1 10^3/uL (0.0-0.6); ABSOLUTE LYMPHOCYTES (AUTO) 1.9 10^3/uL (0.5-4.7); ABSOLUTE MONOCYTES (AUTO) 0.8 10^3/uL (0.1-1.4); ABSOLUTE NEUT (AUTO) 7.2 10^3/uL (1.7-8.2); BASOPHILS % (AUTO) 0.5 % (0-2); EOSINOPHILS % (AUTO) 1.3 % (0-6); HEMATOCRIT 34.1 % (36.0-47.0); HEMOGLOBIN 11.5 g/dL (12.0-15.5); LYMPHOCYTES % (AUTO) 18.6 % (13-45); MEAN CORPUSCULAR HEMOGLOBIN 28.2 pg (27.0-33.4); MEAN CORPUSCULAR HGB CONC 33.7 g/dL (32.0-36.0); MEAN CORPUSCULAR VOLUME 84 fl (80-97); MONOCYTES % (AUTO) 8.4 % (3-13); PLATELET COUNT 294 10^3/uL (150-450); RED BLOOD COUNT 4.07 10^6/uL (3.72-5.28); RED CELL DISTRIBUTION WIDTH 13.6 % (11.5-14.0); SEGMENTED NEUTROPHILS % (AUTO) 71.2 % (42-78); TOTAL CELLS COUNTED % (AUTO) 100 %; WHITE BLOOD COUNT 10.1 10^3/uL (4.0-10.5)
[2017-09-17 13:47] LABS: INTERNATIONAL RATION (INR) 0.98; PROTHROMBIN TIME 13.5 SEC (11.4-15.4)
[2017-09-17 13:48] LABS: PARTIAL THROMBOPLASTIN TIME 34.7 SEC (23.5-35.8)
[2017-09-17 14:02] LABS: ALANINE AMINOTRANSFERASE 29 U/L (9-52); ALBUMIN 3.5 g/dL (3.5-5.0); ALKALINE PHOSPHATASE 96 U/L (38-126); ANION GAP 8 (5-19); ASPARTATE AMINO TRANSFERASE 46 U/L (14-36); BILIRUBIN,DIRECT 0.5 mg/dL (0.0-0.4); BILIRUBIN,TOTAL 0.5 mg/dL (0.2-1.3); BLOOD UREA NITROGEN 20 mg/dL (7-20); CALCIUM 9.4 mg/dL (8.4-10.2); CARBON DIOXIDE 30 mmol/L (22-30); CHLORIDE 96 mmol/L (98-107); GLUCOSE 84 mg/dL (75-110); POTASSIUM 4.3 mmol/L (3.6-5.0); SODIUM 134.3 mmol/L (137-145); TOTAL PROTEIN 6.3 g/dL (6.3-8.2)
--- NOTE | 2017-09-17 14:34 | RADIOLOGY REPORT (SQ) ---
EXAM DESCRIPTION: CT HEAD WITHOUT COMPLETED DATE/TIME: 09/17/2017 2:06 pm REASON FOR STUDY: fall COMPARISON: None. TECHNIQUE: Axial images acquired through the brain without intravenous contrast. Images reviewed wi th bone, brain and subdural windows. Additional sagittal and coronal reconstructions were generated. Images stored on PACS. All CT scanners at this facility use dose modulation, iterative reconstruction, and/or weight based d osing when appropriate to reduce radiation dose to as low as reasonably achievable (ALARA). [facility]: Dose Right [facility]: CareDose [facility]: Dose Right [facility]: Teradose 4D [facility]: TrashOut RADIATION DOSE: CT Rad equipment meets quality standard of care and radiation dose reduction techniq ues were employed. CTDIvol: 53.2 mGy. DLP: 937 mGy-cm. mGy. LIMITATIONS: None. FINDINGS: VENTRICLES: Normal size and contour. CEREBRUM: No CT evidence of acute large territory ischemic change, acute intracranial hemorrhage, mas s effect, or midline shift. Old lacunar infarct in the left caudate, 5 mm in size. CEREBELLUM: No masses. No hemorrhage. No alteration of density. No evidence for acute infarction. EXTRAAXIAL SPACES: No fluid collections. No masses. ORBITS AND GLOBE: No intra- or extraconal masses. Globes post cataract surgery. CALVARIUM: No fracture. PARANASAL SINUSES: No fluid or mucosal thickening. SOFT TISSUES: No mass or hematoma. OTHER: No other significant finding. IMPRESSION: No acute findings. Old lacunar infarct left caudate. EVIDENCE OF ACUTE STROKE: NO. COMMENT: Quality ID # [id number]: Final reports with documentation of one or more dose reduction techniques (e.g., Automated exposure control, adjustment of the mA and/or kV according to patient size, use of iterative reconstruction technique) TECHNICAL DOCUMENTATION: JOB ID: [id number] [employer]- All Rights Reserved Reading location - IP/workstation name: [email or web address]
--- NOTE | 2017-09-17 14:52 | RADIOLOGY REPORT (SQ) ---
EXAM DESCRIPTION: FEMUR RIGHT COMPLETED DATE/TIME: 09/17/2017 2:17 pm REASON FOR STUDY: fall, leg pain, swelling COMPARISON: Pelvis and left hip dated 07/07/2017 NUMBER OF VIEWS: Two views. TECHNIQUE: Two radiographic images acquired of the right femur to include hip and knee in at least o ne projection. LIMITATIONS: None. FINDINGS: MINERALIZATION: Normal. BONES: There is cortical irregularity and lucencies at the level of the greater trochanter which were not present on the previous study of 07/07/2017 and is suspicious for acute fracture lines. Clinical correlation is recommended. No other evidence for fracture is seen. SOFT TISSUES: No obvious swelling or foreign body. OTHER: Patient is status post right total hip replacement. The prosthesis appears well seated in the acetabulum and proximal femoral medullary canal. IMPRESSION: Status post right total hip replacement. There is cortical irregularity in lucencies at the level of the greater trochanter which were not present on the previous study of 07/07/2017 and is suspicious for acute fracture lines. Clinical correlation is recommended. Other findings as noted above TECHNICAL DOCUMENTATION: JOB ID: [id number] [email or web address]- All Rights Reserved Reading location - IP/workstation name: [email or web address]
--- NOTE | 2017-09-17 14:56 | RADIOLOGY REPORT (SQ) ---
EXAM DESCRIPTION: HIP RIGHT AP/LATERAL COMPLETED DATE/TIME: 09/17/2017 2:17 pm REASON FOR STUDY: hip pain post fall COMPARISON: Pelvis and left hip films dated 07/07/2017 NUMBER OF VIEWS: Two views. TECHNIQUE: AP pelvis and additional frog-leg view of the right hip. LIMITATIONS: None. FINDINGS: MINERALIZATION: Normal. RIGHT HIP: Patient is status post right total hip replacement. The prosthesis appears well seated in the acetabulum and proximal femoral medullary canal. There is cortical irregularity and lucencies a t the level of the greater trochanter on the right which were not present on the previous study and a re suspicious for acute fracture lines. Clinical correlation is recommended. LEFT HIP: Patient is status post left total hip replacement. Extensive orthopedic hardware is identi fied on the left. PUBIS AND ISCHIUM: There is some bony deformity of the inferior pubic ramus on the left unchanged fro m the previous study. PELVIS: No fracture. SACRUM: No fracture or dislocation. No worrisome bone lesions. LOWER LUMBAR SPINE: No fracture or dislocation. No worrisome bone lesions. No significant disc disea se. SOFT TISSUES: No findings. OTHER: No other significant finding. IMPRESSION: Status post right total hip replacement as noted above. There is cortical irregularity and lucencies at the level of the greater trochanter on the right which were not present on the previ ous study and are suspicious for acute fracture lines. Clinical correlation is recommended. Other f indings as noted above TECHNICAL DOCUMENTATION: JOB ID: [id number] [employer]- All Rights Reserved Reading location - IP/workstation name: [email or web address]
--- NOTE | 2017-09-17 14:58 | RADIOLOGY REPORT (SQ) ---
EXAM DESCRIPTION: TIBIA FIBULA RIGHT COMPLETED DATE/TIME: 09/17/2017 2:17 pm REASON FOR STUDY: fall, leg pain, swelling COMPARISON: None. NUMBER OF VIEWS: Two views. TECHNIQUE: Two radiographic images acquired of the right tibia and fibula to include the knee and an kle in at least one projection. LIMITATIONS: None. FINDINGS: MINERALIZATION: Normal. BONES: No acute fracture or dislocation. No worrisome bone lesions. SOFT TISSUES: No obvious swelling or foreign body. OTHER: No other significant finding. IMPRESSION: NEGATIVE STUDY OF THE RIGHT TIBIA AND FIBULA. NO RADIOGRAPHIC EVIDENCE OF ACUTE INJURY. TECHNICAL DOCUMENTATION: JOB ID: [id number] [employer]- All Rights Reserved Reading location - IP/workstation name: [email or web address]
--- NOTE | 2017-09-17 15:34 | ER Document Report ---
ED Fall - General Chief Complaint: Fall Injury Stated Complaint: FALL/BODY PAIN Time Seen by Provider: 09/17/17 13:19 Mode of Arrival: Stretcher Information source: Patient, Relative - daughters TRAVEL OUTSIDE OF THE [place] IN LAST 30 DAYS: No - HPI Occurred: Just prior to arrival Where: Home Context: Fell from standing - "R. LEG GAVE OUT" Associated symptoms: Difficulty walking - CHRONIC, WAS NOT USING WALKER. denies : Lost consciousness Location of injury/pain: Face, Hip, Shoulder Quality of pain: Dull - Related data Allergies/Adverse Reactions: Penicillins Allergy (Verified 12/07/13 12:37) Sulfa (Sulfonamide Antibiotics) Allergy (Verified 09/17/17 12:14) Past Medical History - General Information source: Patient, Relative - daughters - Social History Smoking Status: Unknown if Ever Smoked Cigarette use (# per day): No Chew tobacco use (# tins/day): No Frequency of alcohol use: None Drug Abuse: None Lives with: Family Family History: None, Reviewed & Not Pertinent Patient has suicidal ideation: No Patient has homicidal ideation: No - Past Medical History Cardiac Medical History: Reports: Hx Hypertension - CONTROLLED Denies: Hx Coronary Artery Disease, Hx Heart Attack Pulmonary Medical History: Reports: Hx Pneumonia Denies: Hx Asthma, Hx Bronchitis, Hx COPD Neurological Medical History: Denies: Hx Cerebrovascular Accident, Hx Seizures Renal/ Medical History: Denies: Hx Peritoneal Dialysis GI Medical History: Reports: Hx Gastroesophageal Reflux Disease, Hx Hiatal Hernia. Denies: Hx Hepatitis, Hx Ulcer Musculoskeltal Medical History: Reports Hx Arthritis, Reports Hx Musculoskeletal Trauma - HIP & FEMUR FXS, S/P O.R.I.F. Skin Medical History: Reports None Psychiatric Medical History: Reports: None Infectious Medical History: Denies: Hx Hepatitis Past Surgical History: Reports: Hx Hysterectomy, Hx Orthopedic Surgery. Denies : Hx Mastectomy, Hx Open Heart Surgery, Hx Pacemaker - Immunizations Hx Diphtheria, Pertussis, Tetanus Vaccination: Yes Hx Pneumococcal Vaccination: 03/30/00 Review of Systems - Review of Systems Constitutional: No symptoms reported EENT: No symptoms reported Cardiovascular: No symptoms reported Respiratory: No symptoms reported Gastrointestinal: No symptoms reported Genitourinary: No symptoms reported Female Genitourinary: Post menopausal Musculoskeletal: See HPI Skin: See HPI Neurological/Psychological: No symptoms reported Physical Exam - Vital signs Vitals: Temp Pulse Resp BP Pulse Ox 98.3 F 100 16 145/66 H 98 09/17/17 11:32 09/17/17 11:32 09/17/17 11:32 09/17/17 11:32 09/17/17 11:32 Interpretation: Hypertensive - General General appearance: Appears well, Alert In distress: None - HEENT Head: Normocephalic, Abrasions - R. MAXILLA, L. FRONTAL Eyes: Normal Conjunctiva: Normal Ears: Normal Nasal: Normal Mouth/Lips: Normal Mucous membranes: Normal Pharynx: Normal Neck: Normal, Supple - Respiratory Respiratory status: No respiratory distress - Cardiovascular Rhythm: Regular - Abdominal Inspection: Normal Distension: No distension - Back Back: Normal - Extremities General upper extremity: No: Normal inspection - L. SHOULDER ABRASION General lower extremity: Edema - R. LEG. No: Normal inspection Thigh: Other - SMALL OPEN WOUND L. LAT. THIGH Right calf in cm: 28 - Neurological Neuro grossly intact: Yes Cognition: Normal Orientation: AAOx4 - Psychological Associated symptoms: Normal affect, Normal mood - Skin Skin Temperature: Warm Skin Moisture: Dry Skin Color: Normal Skin Turgor: Elastic Skin irregularity: other - MULTIPLE SUPERFICIAL ABRASIONS (SEE ABOVE). Course - Vital Signs Vital signs: Temp Pulse Resp BP Pulse Ox 98.3 F 100 16 145/66 H 98 09/17/17 11:32 09/17/17 11:32 09/17/17 11:32 09/17/17 11:32 09/17/17 11:32 - Laboratory Result Diagrams: 09/17/17 13:29 09/17/17 13:29 Laboratory results interpreted by me: 09/17/17 09/17/17 13:29 13:29 Hgb 11.5 L Hct 34.1 L Sodium 134.3 L Chloride 96 L Direct Bilirubin 0.5 H AST 46 H Discharge - Discharge Clinical Impression: Abrasions of multiple sites Fall at home Qualifiers: Encounter type: initial encounter Qualified Code(s): W19.XXXA - Unspecified fall, initial encounter; Y92.009 - Unspecified place in unspecified non- institutional (private) residence as the place of occurrence of the external cause; Y92.009 - Unspecified place in unspecified non-institutional (private) residence as the place of occurrence of the external cause Hip fracture, right Qualifiers: Encounter type: initial encounter Fracture type: closed Qualified Code(s): S72.001A - Fracture of unspecified part of neck of right femur, initial encounter for closed fracture Condition: Stable Disposition: HOME, SELF-CARE Instructions: Fracture ([facility]), Abrasions of the Face ([facility]) Additional Instructions: CONTINUE PRESENT CARE AND MEDS. USE WALKER OR CALL FOR ASSISTANCE ANY TIME YOU TRY TO WALK. FOLLOW UP WITH YOUR ORTHOPEDIC DOCTOR SCHEDULED. RETURN TO E.R. IF PROBLEMS, ANY TIME. Referrals: WILLIAM RUSSELL MD [Primary Care Provider] - Follow up as needed
[2017-09-17 17:00] VITALS: BP 132/84
== END 2017-09-17 17:02 | disposition home or self-care (01) ==
LOC: ER 11:02
DX: S72.001A Fracture of unspecified part of neck of right femur, initial encounter for closed fracture (principal); S00.81XA Abrasion of other part of head, initial encounter; S40.212A Abrasion of left shoulder, initial encounter; R26.2 Difficulty in walking, not elsewhere classified; M79.1 Myalgia; W19.XXXA Unspecified fall, initial encounter; Y92.009 Unspecified place in unspecified non-institutional (private) residence as the place of occurrence of the external cause; I10 Essential (primary) hypertension
CPT/HCPCS: 36415; 70450; 80053; 81001; 83605; 85025; 85610; 85730; 87040; 99284

== ENCOUNTER → 2018-08-20 | Outpatient (CLI) | payer MEDICARE, OTHER ==
--- NOTE | 2018-08-20 09:04 | WOMENS IMAGING REPORT ---
EXAM DESCRIPTION: BONE DENSITY HIP/SPINE COMPLETED DATE/TIME: 08/20/2018 8:49 am REASON FOR STUDY: M81.0 M81.0 AGE-RELATED OSTEOPOROSIS W/O CURRENT PATHOLOGICAL FRAC COMPARISON: 01/02/2016 TECHNIQUE: Dual-Energy X-ray Absorptiometry (DEXA) of the AP Spine and Forearm. LIMITATIONS: None. FINDINGS: LUMBAR SPINE: The bone mineral density (BMD) measured from L1-L4 in the AP projection correlates with a T-score of -1.6, which is osteopenia as defined by the World Health Organization. FOREARM: The bone mineral density (BMD) measured in the left forearm correlates with a T-score of -2.6 which i s osteoporosis as defined by the World Health Organization. IMPRESSION: 1. LUMBAR SPINE: Osteopenia. Slightly improved from prior study. 2. FOREARM: Osteoporosis. Essentially stable from prior study. COMMENT: The World Health Organization defines low BMD as follows: T-score: Normal: Greater than -1.0 Osteopenia: Between -1.0 and -2.5 Osteoporosis: Less than -2.5 without fractures Established osteoporosis: Less than -2.5 with fractures In general, you may wish to consider: Diagnosis Treatment Follow-up DEXA Normal BMD Prevention 2-3 years Osteopenia Prevention/Therapy 1-2 years Osteoporosis Therapy Yearly TECHNICAL DOCUMENTATION: JOB ID: [id number]- All Rights Reserved Reading location - IP/workstation name: [email or web address]
== END ==
LOC: WI 08:29
PROVIDERS: ATTEND Internal Medicine
DX: M81.0 Age-related osteoporosis without current pathological fracture (principal)
CPT/HCPCS: 77080

== ENCOUNTER → 2019-01-28 | Outpatient (CLI) | payer MEDICARE, OTHER ==
--- NOTE | 2019-01-28 12:35 | RADIOLOGY REPORT (SQ) ---
EXAM DESCRIPTION: KNEE LEFT 4 VIEWS; KNEE RIGHT 4 VIEWS COMPLETED DATE/TIME: 01/28/2019 12:07 pm REASON FOR STUDY: PAIN M25.561 PAIN IN RIGHT KNEE M25.562 PAIN IN LEFT KNEE COMPARISON: None. NUMBER OF VIEWS: 8 views TECHNIQUE: AP, lateral, and both oblique radiographic images acquired of the right and left knee. LIMITATIONS: None. FINDINGS: MINERALIZATION: Osteopenia. BONES: No acute fracture or dislocation. No worrisome bone lesions. Old fracture distal left femur st atus post plate and screw fixation. JOINT: Joint space narrowing patellofemoral compartments bilaterally. OTHER: No other significant finding. IMPRESSION: Osteoarthritis patellofemoral compartments. TECHNICAL DOCUMENTATION: JOB ID: [id number] [employer]- All Rights Reserved Reading location - IP/workstation name: [email or web address]
--- NOTE | 2019-01-28 12:35 | RADIOLOGY REPORT (SQ) ---
EXAM DESCRIPTION: KNEE LEFT 4 VIEWS; KNEE RIGHT 4 VIEWS COMPLETED DATE/TIME: 01/28/2019 12:07 pm REASON FOR STUDY: PAIN M25.561 PAIN IN RIGHT KNEE M25.562 PAIN IN LEFT KNEE COMPARISON: None. NUMBER OF VIEWS: 8 views TECHNIQUE: AP, lateral, and both oblique radiographic images acquired of the right and left knee. LIMITATIONS: None. FINDINGS: MINERALIZATION: Osteopenia. BONES: No acute fracture or dislocation. No worrisome bone lesions. Old fracture distal left femur st atus post plate and screw fixation. JOINT: Joint space narrowing patellofemoral compartments bilaterally. OTHER: No other significant finding. IMPRESSION: Osteoarthritis patellofemoral compartments. TECHNICAL DOCUMENTATION: JOB ID: [id number] [employer]- All Rights Reserved Reading location - IP/workstation name: [email or web address]
== END ==
LOC: OD 11:49
PROVIDERS: ATTEND Physician Assistant
DX: M17.0 Bilateral primary osteoarthritis of knee (principal); M25.561 Pain in right knee; M25.562 Pain in left knee